=== PATIENT | male | born 1965 | race Hispanic/Latino ===

== ENCOUNTER → 2024-05-17 | Day surgery (SDC) | payer OTHER ==
[~2024-05-17] MED LIST: AMLODIPINE BESY10 MG PO; FENTANYL CITRATE/PF 100MCG/2 ML INJ ONE; MIDAZOLAM HCL 2 MG/2 ML VIAL ONE
[2024-05-17] MEDS: LACTATED RINGER'S 1,000 ML ONE (11:21)
[2024-05-17 11:35] LABS: HEMATOCRIT 49.8 % (38.2-49.6); HEMOGLOBIN 15.8 g/dL (14.0-18.0)
[2024-05-17 11:54] LABS: ANION GAP 13.2 mmol/L (8-16); CALCIUM 9.2 mg/dL (8.4-10.2); CREATININE, SERUM 0.7 mg/dL (0.72-1.25); POTASSIUM 4.2 mmol/L (3.5-5.1)
[2024-05-17 14:15] VITALS: BP 137/88; PULSE 70; RESP 17; TEMP 97.1; O2SAT 96
== END | disposition home or self-care (01) ==
LOC: OR 05:00
PROVIDERS: ATTEND Ophthalmology
DX: H11.002 Unspecified pterygium of left eye (principal); I10 Essential (primary) hypertension; E66.01 Morbid (severe) obesity due to excess calories; Z79.899 Other long term (current) drug therapy
CPT/HCPCS: 36415; 80048; 85014; 85018; 88304; 88342; 93005; J2250; V2790